=== PATIENT | female | born 1990 | race Caucasian/White ===

== ENCOUNTER 2025-01-16 10:02 | Outpatient (CLI) | payer BC, SELFPAY | END 2025-01-16 10:03 | disposition home or self-care (01) | LOC: NFLDREF 01-20 02:27 | PROVIDERS: Visit Provider Physician Assistant | DX: Z34.93 Encounter for supervision of normal pregnancy, unspecified, third trimester (principal) | CPT/HCPCS: 86592; 86787 ==

== ENCOUNTER 2025-02-23 11:23 | Outpatient (CLI) | payer BC, SELFPAY ==
[2025-02-23 11:50] VITALS: BP 122/71; PULSE 100; PULSE 99; RESP 18; TEMP 36.9; O2SAT 98
--- NOTE | 2025-02-23 17:24 | PC.OBNST ---
NST Note NST Note Start: 02/23/25 11:35 Freq: ONCE Status: Active Protocol: Document 02/23/25 11:35 MMS (Rec: 02/23/25 17:23 [facility] [id number]) NST Note 4 Para (# of births) 3 EDC 04/12/25 Gestational Age In 33 Weeks & 1 Days Weeks & Days Patient Presented Contractions/cramping,Nausea and vomiting with Complaint(s) of Reactive Yes Appropriate for Yes Gestational Age STU Owens RN Date 02/23/25 Reactive Yes Appropriate for Yes Gestational Age STU Keith RN Date 02/23/25 OB NST charge Yes Complete NST Note Yes via Write Note The provider's electronic signature indicates the NST is reactive/appropriate for gestational age. *Note to provider: If an addendum is required, open the patient's chart and click on the note under the Nurse/Allied Health tab.
== END 2025-02-23 16:23 | disposition home or self-care (01) ==
LOC: OB OUT 11:24 → OB 11:26
PROVIDERS: Visit Provider Obstetrics & Gynecology
DX: O47.03 False labor before 37 completed weeks of gestation, third trimester (principal); Z3A.33 33 weeks gestation of pregnancy
CPT/HCPCS: 59025; G0463

== ENCOUNTER 2025-02-27 10:10 | Outpatient (CLI) | payer BC, SELFPAY ==
[2025-02-27 11:06] LABS: Fetal Fibronectin* Negative (Negative)
[2025-02-27 11:53] LABS: Bacterial Vaginosis* Negative (Negative); Candida glab/krus NOT DETECTED (No Detected)
== END 2025-02-27 10:11 | disposition home or self-care (01) ==
PROVIDERS: Visit Provider Obstetrics & Gynecology
DX: O47.03 False labor before 37 completed weeks of gestation, third trimester (principal)
CPT/HCPCS: 81513; 84112; 87086; 87481; 87661

== ENCOUNTER 2025-02-28 07:16 | Outpatient (CLI) | payer BC, SELFPAY ==
--- NOTE | 2025-02-28 07:15 | CRLHL7_ITS ---
For Patients: As a result of the Century Cures Act, medical imaging exams and procedure reports are released immediately into your electronic medical record. You may view this report before your referring provider. If you have questions, please contact your health care provider. OB ULTRASOUND GODFREY by LMP: 04/12/2025. GA: 33 w, 6 d. Single. INDICATION: Uterine size-date discrepancy. TECHNIQUE: Real time grayscale imaging of the fetus was performed. Transabdominal. CERVIX: Not visualized. POSITIONING: Vertex. AMNIOTIC FLUID: 7.1 cm. SDP (N: greater than 2 x 1 cm) PLACENTA: Technique: Transabdominal. PLACENTA POSITION: Posterior. DOPPLER: heart rate: 139 bpm. BIOMETRY: BPD: 8.6 cm. 34 w, 5 d, 73.3%. HC: 31.8 cm. 35 w, 6 d, 64.9%. AC: 31.9 cm. 35 w, 6 d, 94.8%. FL: 6.5 cm. 33 w, 4 d, 30.9%. FL/AC ratio: 20.4%. HC/AC ratio: 1.0. EFW: 2601g. Weight: 5 lbs., 12 oz. age by this US: 35 w, 0 d. GODFREY by this US: 04/04/2025. Percentile by GODFREY: 80.3%. IMPRESSION: 1. Sonographic gestational age 35 weeks 0 days and sonographic due date 04/04/2025. Sonographic age is 8 days ahead of the clinical age. 2. Estimated weight 80th percentile. Abdominal circumference 95th percentile. Michael Heller M.D. Diagnostic Radiologist [email or web address] CASSI/nhung hooker/Dictated by: Michael Heller MD @ 02/28/2025 2:36:00 PM (Electronically Signed)
== END 2025-02-28 07:17 | disposition home or self-care (01) ==
PROVIDERS: Visit Provider Obstetrics & Gynecology
DX: O36.63X0 Maternal care for excessive fetal growth, third trimester, not applicable or unspecified (principal); Z3A.33 33 weeks gestation of pregnancy
CPT/HCPCS: 76815